=== PATIENT | female | born 1975 | race Caucasian/White ===

== ENCOUNTER 2017-02-21 10:25 | Emergency (ER) | payer SELFPAY ==
[2017-02-21 10:58] VITALS: BP 137/78
[2017-02-21 11:24] LABS: Eosinophils % (Auto) 1.1 % (0.0-4.3); Hematocrit 38.4 % (30.3-42.9); Hemoglobin 12.9 gm/dl (10.1-14.3); Mean Corpuscular HGB Conc 34 % (30-34); Mean Corpuscular Hemoglobin 31 pg (28-32); Mean Corpuscular Volume 92 fl (79-97); Platelet Count 241 K/mm3 (140-440); Red Blood Count 4.16 M/mm3 (3.65-5.03); Red Cell Distribution Width 14.2 % (13.2-15.2); White Blood Count 3.9 K/mm3 (4.5-11.0)
[2017-02-21 11:34] LABS: Alanine Aminotransferase 19 units/L (7-56); Albumin 4.2 g/dL (3.9-5); Albumin/Globulin Ratio 1.4 %; Alkaline Phosphatase 52 units/L (35-129); Anion Gap 22 mmol/L; Bilirubin,Total 0.3 mg/dL (0.1-1.2); Blood Urea Nitrogen 8 mg/dL (7-17); Calcium 9.6 mg/dL (8.4-10.2); Carbon Dioxide 20 mmol/L (22-30); Chloride 102.7 mmol/L (98-107); Glucose 119 mg/dL (65-100); Lipase 16 units/L (13-60); Potassium 3.6 mmol/L (3.6-5.0); Sodium 141 mmol/L (137-145); Total Protein 7.2 g/dL (6.3-8.2)
[2017-02-21 11:49] LABS: Bacteria,Urine 1+ /HPF (Negative); Bilirubin,Urine NEG (Negative); Blood,Urine NEG (Negative); Ketones,Urine NEG (Negative); Leukocyte Esterase,Urine NEG (Negative); Mucus,Urine FEW /HPF; Nitrite,Urine NEG (Negative); Protein,Urine <15 mg/dL mg/dL (Negative); Urobilinogen,Urine < 2.0 mg/dL (<2.0)
--- NOTE | 2017-02-22 07:26 | ED Elopement Review ---
ED Pt Elopement review - Results review Lab results: Laboratory Tests 02/21/17 02/21/17 02/21/17 11:01 11:01 11:19 WBC 3.9 L RBC 4.16 Hgb 12.9 Hct 38.4 MCV 92 MCH 31 MCHC 34 RDW 14.2 Plt Count 241 Lymph % (Auto) 37.7 H [place] % (Auto) 9.3 H Eos % (Auto) 1.1 Baso % (Auto) 1.0 Lymph # 1.5 [place] # 0.4 Eos # 0.0 Baso # 0.0 Seg Neutrophils % 50.9 Seg Neutrophils # 2.0 Sodium 141 Potassium 3.6 Chloride 102.7 Carbon Dioxide 20 L Anion Gap 22 BUN 8 Creatinine 0.5 L Estimated GFR > 60 BUN/Creatinine Ratio 16.00 Glucose 119 H Calcium 9.6 Total Bilirubin 0.3 AST 20 ALT 19 Alkaline Phosphatase 52 Total Protein 7.2 Albumin 4.2 Albumin/Globulin Ratio 1.4 Lipase 16 Urine Color Yellow Urine Turbidity Clear Urine pH 9.0 H Ur Specific [place] 1.014 Urine Protein <15 mg/dl Urine Glucose (UA) Neg Urine Ketones Neg Urine Blood Neg Urine Nitrite Neg Ur Reducing Substances Not Reportable Urine Bilirubin Neg Urine Ictotest Not Reportable Urine Urobilinogen < 2.0 Ur Leukocyte Esterase Neg Urine WBC (Auto) 3.0 Urine RBC (Auto) 2.0 U Epithel Cells (Auto) 3.0 Urine Bacteria (Auto) 1+ Urine Mucus Few Urine HCG, Qual Negative - Call Back decision Pt Call Back Decision: Pt to F/U with PMD (alcohol and increased anion gap)
== END 2017-02-21 11:15 | disposition left against medical advice (07) ==
LOC: ED 10:25
DX: R10.9 Unspecified abdominal pain (principal); R11.2 Nausea with vomiting, unspecified; R19.7 Diarrhea, unspecified; Z53.21 Procedure and treatment not carried out due to patient leaving prior to being seen by health care provider
CPT/HCPCS: 36415; 80053; 81001; 81025; 83690; 85025